=== PATIENT | male | born 1985 | race African-American/Black ===

== ENCOUNTER 2024-03-19 09:42 | Emergency (ER) | payer BC ==
[~2024-03-19] VITALS: Ht 182.9 cm; Wt 108.0 kg
[2024-03-19 09:46] VITALS: BP 186/105; PULSE 144; RESP 16; TEMP 98.2; O2SAT 98
[2024-03-19] MEDS: CHLORDIAZEPOXIDE 25MG CAPSULE PO ONE (11:55)
== END 2024-03-19 12:01 | disposition left against medical advice (07) ==
LOC: ER 10:12
DX: F19.20 Other psychoactive substance dependence, uncomplicated (principal); E11.9 Type 2 diabetes mellitus without complications; I10 Essential (primary) hypertension
CPT/HCPCS: 93005; 99283